=== PATIENT | female | born 1960 | race Hispanic/Latino ===

== ENCOUNTER → 2020-08-14 | Day surgery (SDC) | payer MEDICARE, OTHER ==
[~2020-08-14] MED LIST: BUTRANS1 EAC1 TOP; BYDUREON2 MG; FENTANYL CITRATE/PF 100MCG/2 ML INJ ONE; JARDIANCE PO; LANTUS 3ML100 UNITS/ SC; LIDOCAINE HCL 2% LOCAL INJ 5 ML SDV VIAL INJ ONE; LISINOPRIL-HCT1 EACH PO; MIDAZOLAM HCL 2 MG/2 ML VIAL ONE; NEURONTIN300 MG; NORCO 7.5-3251 EACH; OZEMPIC1 MG/0.75 SC; PROPOFOL IV EMULSION 10 MG/ML 20 ML VIAL ONE; SIMVASTATIN20 MG; TRAMADOL HCL50 MG; Z.0.METFORMIN HCL100; Z.0.NEURONTIN300 MG; Z.0.NEXIUM40 M1; [UNRECOGNIZED DRUG - OTHER]
[2020-08-14 09:40] VITALS: BP 114/66
== END | disposition home or self-care (01) ==
LOC: OR 06:08
PROVIDERS: ATTEND Internal Medicine Gastroenterology
DX: K29.50 Unspecified chronic gastritis without bleeding (principal); K21.00 Gastro-esophageal reflux disease with esophagitis, without bleeding; K31.89 Other diseases of stomach and duodenum; K44.9 Diaphragmatic hernia without obstruction or gangrene; Z71.3 Dietary counseling and surveillance; E11.9 Type 2 diabetes mellitus without complications; I10 Essential (primary) hypertension; E66.9 Obesity, unspecified; Z01.810 Encounter for preprocedural cardiovascular examination; Z01.812 Encounter for preprocedural laboratory examination; Z20.822 Contact with and (suspected) exposure to COVID-19; Z79.4 Long term (current) use of insulin; Z68.30 Body mass index [BMI] 30.0-30.9, adult
CPT/HCPCS: 36415; 43239; 82948; 93005; J2001; J2250; J2704; J3010; U0002